=== PATIENT | female | born 2000 | race Two or more races ===

== ENCOUNTER 2021-08-05 20:52 | Emergency (ER) | payer OTHER ==
[~2021-08-05] VITALS: Ht 162.6 cm; Wt 83.5 kg
[2021-08-05] MEDS ORDERED: CYCLOBENZAPRINE10 MG PO (23:45)
[2021-08-05] MEDS ORDERED: EC-NAPROSYN375 MG PO (23:45)
== END 2021-08-06 00:11 | disposition left against medical advice (07) ==
LOC: ER 20:52
DX: M62.830 Muscle spasm of back (principal); M62.838 Other muscle spasm; Z91.013 Allergy to seafood